=== PATIENT | female | born 1950 | race African-American/Black ===

== ENCOUNTER 2018-03-04 02:36 | Inpatient (IN) | payer OTHER ==
[2018-03-04 03:13] LABS: URINE BLOOD (Dip) POC 2+ (NEGATIVE); URINE GLUCOSE (Dip) POC Negative (NEGATIVE); URINE KETONES (Dip) POC Trace (NEGATIVE); URINE LEUKOCYTE EST (Dip) POC Trace (NEGATIVE); URINE NITRITE (Dip) POC Negative (NEGATIVE); URINE TOTAL PROTEIN POC 2+ (NEGATIVE)
[2018-03-04 03:32] LABS: ADD MAN DIFF? NO
[2018-03-04] MEDS: CEFEPIME 2GM/50 ML (PMX) 50 ML IVPB (03:40)
[2018-03-04] MEDS: SODIUM CHLORIDE 0.9% 1L BAG IV* (03:40)
[2018-03-04 03:50] LABS: ADD UMIC YES; UR ASCORBIC ACID NEGATIVE (NEGATIVE); UR BACTERIA MODERATE /HPF (NONE SEEN); UR BILIRUBIN (Dip) NEGATIVE (NEGATIVE); UR BLOOD (Dip) 2+ mg/dL (NEGATIVE); UR BUDDING YEAST MANY /HPF (NONE SEEN); UR CLARITY TURBID (CLEAR); UR COLOR YELLOW (YELLOW); UR GLUCOSE (Dip) NEGATIVE (NEGATIVE); UR KETONES (Dip) TRACE mg/dL (NEGATIVE); UR LEUKOCYTE ESTERASE (Dip) 2+ Leu/ul (NEGATIVE); UR MUCUS MANY /HPF (NONE SEEN); UR NITRITE (Dip) NEGATIVE (NEGATIVE); UR RBC > 182 /HPF (0-5); UR SPECIFIC GRAVITY (Dip) 1.017 (1.003-1.030); UR TOTAL PROTEIN (Dip) 2+ mg/dl (NEGATIVE); UR UROBILINOGEN (Dip) NEGATIVE (NEGATIVE); UR WBC > 182 /HPF (0-5)
[2018-03-04 03:57] LABS: INR 0.93; PROTIME 12.6 Sec (11.9-14.9)
[2018-03-04 03:59] LABS: ANION GAP 23 (8-16); CALCIUM 10.5 mg/dl (8.4-10.2); CARBON DIOXIDE 21 mmol/L (21-31); CHLORIDE 119 mmol/L (97-110); CREATININE 5.27 mg/dl (0.44-1.00); GLUCOSE 378 mg/dl (70-220); POTASSIUM 5.1 mmol/L (3.5-5.1); SODIUM 158 mmol/L (135-144)
[2018-03-04 04:02] LABS: LACTIC ACID 3.3 mmol/L (0.5-2.0)
[2018-03-04 04:09] LABS: BLOOD UREA NITROGEN 130 mg/dl (7-20)
[2018-03-04 04:10] LABS: WHITE BLOOD COUNT 14.6 10^3/ul (4.8-10.8)
[2018-03-04 04:10] LABS: BASOPHILS % 0.3 % (0.0-2.0); EOSINOPHILS % 0.1 % (0.0-7.0); HEMATOCRIT 53.1 % (37.0-47.0); LYMPHOCYTES # 1.6 10^3/ul (0.8-2.9); LYMPHOCYTES % 10.8 % (15.0-51.0); MEAN CORPUSCULAR HEMOGLOBIN 29.4 pg (29.0-33.0); MEAN CORPUSCULAR VOLUME 91.9 fl (82.0-101.0); MEAN PLATELET VOLUME 11.9 fl (7.4-10.4); MONOCYTE # 0.8 10^3/ul (0.3-0.9); MONOCYTES % 5.4 % (0.0-11.0); NEUTROPHIL # 12.1 10^3/ul (1.6-7.5); NEUTROPHILS % 82.8 % (39.0-77.0); NUCLEATED RED BLOOD CELLS% 0.1 /100WBC (0.0-0.0); PLATELET COUNT 255 10^3/UL (140-415); RED BLOOD COUNT 5.78 10^6/ul (4.20-5.40); RED CELL DISTRIBUTION WIDTH 15.1 % (11.5-14.5)
[2018-03-04 04:14] LABS: TROPONIN-I 0.139 ng/ml (0.000-0.120)
[2018-03-04 04:25] LABS: POSITIVE DIFF @See below
[2018-03-04] MEDS: ASPIRIN 300 MG SUPP PR (05:00)
[2018-03-04] MEDS: morphine 4 MG/ML VIAL IV (05:21)
[2018-03-04 06:19] LABS: LACTIC ACID 3.2 mmol/L (0.5-2.0)
[2018-03-04] MEDS ORDERED: ACETAMINOPHEN 325 MG TAB PO (06:30)
[2018-03-04] MEDS ORDERED: ONDANSETRON 4 MG INJ IV (06:30)
[2018-03-04 09:08] LABS: LACTIC ACID 3.1 mmol/L (0.5-2.0)
[2018-03-04] MEDS ORDERED: morphine 2 MG INJ IV (11:30)
[2018-03-04] MEDS: INSULIN GLARGINE [LANTus] (100 UNITS/ML) SYG SC (11:45)
[2018-03-04] MEDS ORDERED: GLUCOSE GEL 15 GRAM TUBE PO ×2 (12:00)
[2018-03-04] MEDS ORDERED: GLUCAGON 1 MG INJ IM (12:00)
[2018-03-04] MEDS ORDERED: GLUCOSE GEL 15 GRAM TUBE BUCCAL (12:00)
[2018-03-04] MEDS ORDERED: INSULIN ASPART [NOVOLOG] 3 ML PEN SC ×2 (12:00→13:00)
[2018-03-04] MEDS ORDERED: DEXTROSE 50% 50 ML SYRINGE IV ×5 (12:00→15:30)
[2018-03-04 12:16] LABS: CREATINE KINASE 34 IU/L (23-200)
[2018-03-04 12:18] LABS: ANION GAP 23 (8-16); CALCIUM 8.6 mg/dl (8.4-10.2); CARBON DIOXIDE 15 mmol/L (21-31); CHLORIDE 123 mmol/L (97-110); CREATININE 4.93 mg/dl (0.44-1.00); POTASSIUM 5.5 mmol/L (3.5-5.1); SODIUM 155 mmol/L (135-144)
[2018-03-04 12:25] LABS: BLOOD UREA NITROGEN 128 mg/dl (7-20); GLUCOSE 476 mg/dl (70-220)
[2018-03-04 12:27] LABS: CK INDEX 3.6; CK-MB 1.21 ng/ml (0.0-2.4)
[2018-03-04 12:31] LABS: TROPONIN-I 0.067 ng/ml (0.000-0.120)
[2018-03-04] MEDS: SOD CHLORIDE 0.45% 1,000 ML IV (13:00)
[2018-03-04] MEDS ORDERED: SODIUM CHLORIDE 23.4% 77 MEQ, POTASSIUM CHLORIDE 40 MEQ in DEXTROSE 10% 1,000 ML IV (14:04)
[2018-03-04] MEDS ORDERED: SODIUM CHLORIDE 23.4% 77 MEQ in DEXTROSE 10% 1,000 ML IV (14:04)
[2018-03-04] MEDS ORDERED: POTASSIUM CHLORIDE 30 MEQ in SOD CHLORIDE 0.9% 1,000 ML IV (14:04)
[2018-03-04] MEDS ORDERED: POTASSIUM CHLORIDE 40 MEQ in SOD CHLORIDE 0.9% 1,000 ML IV (14:04)
[2018-03-04] MEDS ORDERED: SODIUM CHLORIDE 23.4% 77 MEQ, POTASSIUM CHLORIDE 30 MEQ in DEXTROSE 10% 1,000 ML IV (14:04)
[2018-03-04] MEDS: PIPER-TAZO 2.25 GM (PMX) 50 ML IVPB ×2 (14:05→21:49)
[2018-03-04 14:06] LABS: AADO2 Arterial 9.1 mmHg (7.0-24.0); Allen Test ACCEPTAB; Arterial Base Excess -15.4 mmol/L (-3.0-3); Arterial Blood Gas Oxygen Sat 98.2 mmHG (95.0-98.0); Arterial COHb 0.3 % (0.0-3.0); Arterial Fraction of Oxyhgb 97.6 % (93.0-99.0); Arterial HCO3 12.5 mmol/L (22.0-26.0); Arterial MetHb 0.3 % (0.0-1.5); Arterial Total Hemglobin 14.3 g/dl (12.0-18.0); Arterial pCO2 36.8 mmhg (35-45); MODE NASAL CANNULA; Site Left Radial
[2018-03-04 14:34] LABS: ALANINE AMINOTRANSFERASE 29 IU/L (13-69); ALBUMIN 1.6 g/dl (3.3-4.9); ALKALINE PHOSPHATASE 38 IU/L (42-121); ASPARTATE AMINO TRANSFERASE 11 IU/L (15-46); BILIRUBIN,INDIRECT 0.2 mg/dl (0-1.1); BILIRUBIN,TOTAL 0.2 mg/dl (0.2-1.3); TOTAL PROTEIN 3.9 g/dl (6.1-8.1)
[2018-03-04] MEDS ORDERED: ACCU-CHEK XX (15:00)
[2018-03-04] MEDS: SOD CHLORIDE 0.9% 1,000 ML IV (15:01)
[2018-03-04] MEDS: INSULIN REGULAR, HUMAN 100 UNIT in SOD CHLORIDE 0.9% 100 ML IV (15:02)
[2018-03-04] MEDS: ACCU-CHEK XX ×9 (16:03→23:56)
[2018-03-04] MEDS: NA BICARBONATE 8.4% 50 ML SYG IV (16:03)
[2018-03-04] MEDS: FLUCONAZOLE 200 MG (PMX) 100 ML IVPB (16:08)
[2018-03-04] MEDS: INSULIN HUMAN REGULAR 100 UNIT in SOD CHLORIDE 0.9% 99 ML IV (16:18)
[2018-03-04] MEDS: SODIUM BICARBONATE (IV ADD) 100 MEQ in SOD CHLORIDE 0.45% 900 ML IV ×2 (16:40→21:50)
[2018-03-04 16:51] LABS: CREATININE,URINE RANDOM 119.17 mg/dl (20-320); PROTEIN/CREAT RATIO 0.36 RATIO
[2018-03-04 16:53] LABS: SODIUM,URINE RANDOM 99 mmol/L (30-90)
[2018-03-04 16:53] LABS: CREATININE,URINE RANDOM 118.57 mg/dl (20-320)
[2018-03-04 20:30] LABS: CREATINE KINASE 34 IU/L (23-200)
[2018-03-04 20:31] LABS: ANION GAP 17 (8-16); CALCIUM 7.6 mg/dl (8.4-10.2); CARBON DIOXIDE 21 mmol/L (21-31); CHLORIDE 125 mmol/L (97-110); CREATININE 3.85 mg/dl (0.44-1.00); GLUCOSE 269 mg/dl (70-220); MAGNESIUM 2.2 mg/dl (1.7-2.5); PHOSPHORUS 5.1 mg/dl (2.5-4.9); POTASSIUM 3.3 mmol/L (3.5-5.1); SODIUM 160 mmol/L (135-144)
[2018-03-04 20:42] LABS: CK INDEX 5.2; CK-MB 1.77 ng/ml (0.0-2.4); TROPONIN-I 0.048 ng/ml (0.000-0.120)
[2018-03-04 20:46] LABS: BLOOD UREA NITROGEN 129 mg/dl (7-20)
[2018-03-04] MEDS: DOCUSATE SODIUM 100 MG CAP PO (21:50)
[2018-03-04] MEDS: HEPARIN 5,000 UNIT/0.5 ML VIAL SC (21:51)
[2018-03-04 23:01] LABS: ANION GAP 16 (8-16); CALCIUM 8.4 mg/dl (8.4-10.2); CARBON DIOXIDE 24 mmol/L (21-31); CHLORIDE 125 mmol/L (97-110); CREATININE 4.08 mg/dl (0.44-1.00); GLUCOSE 130 mg/dl (70-220); MAGNESIUM 2.4 mg/dl (1.7-2.5); POTASSIUM 3.3 mmol/L (3.5-5.1)
[2018-03-04] MEDS: POTASSIUM CHLORIDE 100 ML IVPB (23:13)
[2018-03-04] MEDS: DEXTROSE 50% 50 ML SYRINGE IV (23:25)
[2018-03-04 23:29] LABS: BLOOD UREA NITROGEN 125 mg/dl (7-20); SODIUM 162 mmol/L (135-144)
[2018-03-05] MEDS ORDERED: SODIUM BICARBONATE (IV ADD) 100 MEQ in DEXTROSE 5% 1,000 ML IV
[2018-03-05] MEDS: SODIUM BICARBONATE (IV ADD) 100 MEQ in DEXTROSE 5% 1,000 ML IV (00:56)
[2018-03-05] MEDS: POTASSIUM CHLORIDE 100 ML IVPB ×2 (00:56→02:13)
[2018-03-05] MEDS: ACCU-CHEK XX ×21 (00:56→21:04)
[2018-03-05] MEDS ORDERED: ACCU-CHEK XX (02:00)
[2018-03-05] MEDS: INSULIN HUMAN REGULAR 100 UNIT in SOD CHLORIDE 0.9% 99 ML IV (03:09)
[2018-03-05] MEDS: PANTOPRAZOLE (EC) 40 MG TAB PO (05:17)
[2018-03-05] MEDS: PIPER-TAZO 2.25 GM (PMX) 50 ML IVPB ×3 (05:23→22:28)
[2018-03-05 06:56] LABS: ADD MAN DIFF? NO
[2018-03-05 07:02] LABS: BASOPHILS % 0.2 % (0.0-2.0); EOSINOPHILS # 0.3 10^3/ul (0.0-0.5); EOSINOPHILS % 2.2 % (0.0-7.0); HEMATOCRIT 41.4 % (37.0-47.0); HEMOGLOBIN 12.9 g/dl (12.0-16.0); LYMPHOCYTES # 1.8 10^3/ul (0.8-2.9); LYMPHOCYTES % 14.8 % (15.0-51.0); MEAN CORPUSCULAR HEMOGLOBIN 29.3 pg (29.0-33.0); MEAN CORPUSCULAR HGB CONC 31.2 g/dl (32.0-37.0); MEAN CORPUSCULAR VOLUME 94.1 fl (82.0-101.0); MEAN PLATELET VOLUME 11.8 fl (7.4-10.4); MONOCYTE # 0.7 10^3/ul (0.3-0.9); MONOCYTES % 5.4 % (0.0-11.0); NEUTROPHIL # 9.3 10^3/ul (1.6-7.5); NEUTROPHILS % 76.7 % (39.0-77.0); NUCLEATED RED BLOOD CELLS% 0.2 /100WBC (0.0-0.0); PLATELET COUNT 185 10^3/UL (140-415); RED CELL DISTRIBUTION WIDTH 15.3 % (11.5-14.5)
[2018-03-05 07:02] LABS: WHITE BLOOD COUNT 12.1 10^3/ul (4.8-10.8)
[2018-03-05 07:22] LABS: CREATINE KINASE 39 IU/L (23-200)
[2018-03-05 07:33] LABS: CK INDEX 6.1
[2018-03-05 07:35] LABS: TROPONIN-I 0.063 ng/ml (0.000-0.120)
[2018-03-05 07:40] LABS: FREE T4 (FREE THYROXINE) 1.46 ng/dl (0.78-2.44)
[2018-03-05 07:49] LABS: LACTIC ACID 4.9 mmol/L (0.5-2.0)
[2018-03-05] MEDS ORDERED: INSULIN GLARGINE [LANTus] (100 UNITS/ML) SYG SC (08:00)
[2018-03-05 08:18] LABS: ALANINE AMINOTRANSFERASE 26 IU/L (13-69); ALBUMIN 2.4 g/dl (3.3-4.9); ALKALINE PHOSPHATASE 57 IU/L (42-121); ANION GAP 13 (8-16); ASPARTATE AMINO TRANSFERASE 62 IU/L (15-46); BILIRUBIN,INDIRECT 0.5 mg/dl (0-1.1); BILIRUBIN,TOTAL 0.5 mg/dl (0.2-1.3); BLOOD UREA NITROGEN 119 mg/dl (7-20); CALCIUM 8.1 mg/dl (8.4-10.2); CARBON DIOXIDE 30 mmol/L (21-31); CHLORIDE 120 mmol/L (97-110); CREATININE 3.47 mg/dl (0.44-1.00); GLUCOSE 169 mg/dl (70-220); POTASSIUM 4.7 mmol/L (3.5-5.1); SODIUM 158 mmol/L (135-144); TOTAL PROTEIN 5.4 g/dl (6.1-8.1)
[2018-03-05 08:19] LABS: CHOLESTEROL 132 mg/dl (100-200); HDL CHOLESTEROL 26 mg/dl (33-92); LDL CHOLESTEROL,CALCULATED 73 mg/dl; TRIGLYCERIDES 167 mg/dl (0-149)
[2018-03-05 08:28] LABS: MAGNESIUM 2.3 mg/dl (1.7-2.5)
[2018-03-05] MEDS: DEXTROSE 5% 1,000 ML IV ×3 (09:00→22:28)
[2018-03-05] MEDS ORDERED: POTASSIUM CHLORIDE 100 ML IVPB (09:00)
[2018-03-05] MEDS: ASPIRIN (EC) 81 MG TAB PO (09:00)
[2018-03-05] MEDS: DOCUSATE SODIUM 100 MG CAP PO ×2 (09:00→20:52)
[2018-03-05 09:14] LABS: AADO2 Arterial 20.8 mmHg (7.0-24.0); Allen Test ACCEPTAB; Arterial Base Excess 6.3 mmol/L (-3.0-3); Arterial Blood Gas Oxygen Sat 98.4 mmHG (95.0-98.0); Arterial COHb 0.3 % (0.0-3.0); Arterial Fraction of Oxyhgb 97.7 % (93.0-99.0); Arterial HCO3 30.8 mmol/L (22.0-26.0); Arterial MetHb 0.4 % (0.0-1.5); Arterial Total Hemglobin 12.6 g/dl (12.0-18.0); Arterial pCO2 43.9 mmhg (35-45); MODE NASAL CANNULA; Site Left Radial
[2018-03-05] MEDS: HEPARIN 5,000 UNIT/0.5 ML VIAL SC ×2 (09:18→20:52)
[2018-03-05 09:23] LABS: CK-MB 2.35 ng/ml (0.0-2.4)
[2018-03-05 09:49] LABS: THYROID STIMULATING HORMONE 0.445 MIU/L (0.465-4.680)
[2018-03-05] MEDS ORDERED: VANCOMYCIN IV PER PHARMACY XX (10:30)
[2018-03-05] MEDS: VANCOMYCIN 1 GM 250 ML IVPB (11:48)
[2018-03-05] MEDS: FLUCONAZOLE 200 MG (PMX) 100 ML IVPB (15:36)
[2018-03-05 20:52] LABS: PTH CALCIUM 5.5 mg/dL (8.6-10.4)
[2018-03-05] MEDS ORDERED: HEPARIN 5,000 UNIT/0.5 ML VIAL SC (21:00)
[2018-03-05] MEDS ORDERED: DEXTROSE 50% 50 ML SYRINGE IV (22:00)
[2018-03-05] MEDS ORDERED: GLUCAGON 1 MG INJ IM (22:00)
[2018-03-05] MEDS ORDERED: GLUCOSE GEL 15 GRAM TUBE BUCCAL (22:00)
[2018-03-05] MEDS ORDERED: GLUCOSE GEL 15 GRAM TUBE PO ×2 (22:00)
[2018-03-05] MEDS: INSULIN GLARGINE [LANTus] (100 UNITS/ML) SYG SC (22:41)
[2018-03-06] MEDS: INSULIN ASPART [NOVOLOG] 3 ML PEN SC ×6 (01:16→21:00)
[2018-03-06] MEDS ORDERED: ACCU-CHEK XX (02:00)
[2018-03-06] MEDS: DEXTROSE 5% 1,000 ML IV ×2 (05:00→06:19)
[2018-03-06] MEDS: PANTOPRAZOLE (EC) 40 MG TAB PO (05:16)
[2018-03-06] MEDS: PIPER-TAZO 2.25 GM (PMX) 50 ML IVPB (05:17)
[2018-03-06 05:37] LABS: ADD MAN DIFF? NO
[2018-03-06 05:47] LABS: WHITE BLOOD COUNT 11.3 10^3/ul (4.8-10.8)
[2018-03-06 05:47] LABS: BASOPHILS % 0.3 % (0.0-2.0); EOSINOPHILS # 0.3 10^3/ul (0.0-0.5); EOSINOPHILS % 2.5 % (0.0-7.0); LYMPHOCYTES # 1.1 10^3/ul (0.8-2.9); LYMPHOCYTES % 10.1 % (15.0-51.0); MEAN CORPUSCULAR HEMOGLOBIN 29.3 pg (29.0-33.0); MEAN CORPUSCULAR HGB CONC 32.4 g/dl (32.0-37.0); MEAN CORPUSCULAR VOLUME 90.7 fl (82.0-101.0); MONOCYTE # 0.8 10^3/ul (0.3-0.9); MONOCYTES % 6.9 % (0.0-11.0); NEUTROPHILS % 79.3 % (39.0-77.0); NUCLEATED RED BLOOD CELLS% 0.4 /100WBC (0.0-0.0); PLATELET COUNT 165 10^3/UL (140-415); RED BLOOD COUNT 3.75 10^6/ul (4.20-5.40); RED CELL DISTRIBUTION WIDTH 15.2 % (11.5-14.5)
[2018-03-06 06:14] LABS: ANION GAP 11 (8-16); BLOOD UREA NITROGEN 76 mg/dl (7-20); CALCIUM 7.4 mg/dl (8.4-10.2); CARBON DIOXIDE 29 mmol/L (21-31); CHLORIDE 108 mmol/L (97-110); CREATININE 2.32 mg/dl (0.44-1.00); GLUCOSE 201 mg/dl (70-220); POTASSIUM 3.5 mmol/L (3.5-5.1); SODIUM 144 mmol/L (135-144)
[2018-03-06 06:17] LABS: ALANINE AMINOTRANSFERASE 34 IU/L (13-69); ALBUMIN 2.1 g/dl (3.3-4.9); ALKALINE PHOSPHATASE 60 IU/L (42-121); ANION GAP 10 (8-16); ASPARTATE AMINO TRANSFERASE 58 IU/L (15-46); BILIRUBIN,INDIRECT 0.7 mg/dl (0-1.1); BILIRUBIN,TOTAL 0.7 mg/dl (0.2-1.3); BLOOD UREA NITROGEN 80 mg/dl (7-20); CALCIUM 7.4 mg/dl (8.4-10.2); CARBON DIOXIDE 30 mmol/L (21-31); CHLORIDE 107 mmol/L (97-110); CREATININE 2.41 mg/dl (0.44-1.00); GLUCOSE 200 mg/dl (70-220); MAGNESIUM 1.6 mg/dl (1.7-2.5); PHOSPHORUS 2.3 mg/dl (2.5-4.9); POTASSIUM 3.2 mmol/L (3.5-5.1); SODIUM 144 mmol/L (135-144); TOTAL PROTEIN 4.7 g/dl (6.1-8.1)
[2018-03-06] MEDS ORDERED: INSULIN ASPART [NOVOLOG] 3 ML PEN SC (07:35)
[2018-03-06] MEDS: MAGNESIUM SULFATE 2 GM/50 ML 50 ML IVPB (08:33)
[2018-03-06] MEDS: D5W-0.45 NACL + KCL 20 MEQ 1,000 ML IV ×2 (08:34→21:00)
[2018-03-06] MEDS: HEPARIN 5,000 UNIT/0.5 ML VIAL SC ×2 (08:37→21:20)
[2018-03-06] MEDS: ASPIRIN (EC) 81 MG TAB PO (08:38)
[2018-03-06] MEDS: DOCUSATE SODIUM 100 MG CAP PO ×2 (08:38→20:11)
[2018-03-06] MEDS: METOPROLOL 25 MG TAB PO ×2 (09:00→21:00)
[2018-03-06] MEDS: POTASSIUM CHLORIDE 50 ML IVPB ×3 (10:58→17:09)
[2018-03-06] MEDS: FLUCONAZOLE 200 MG (PMX) 100 ML IVPB (11:14)
[2018-03-06 11:46] LABS: PTH INTACT 107 pg/mL (14-64)
[2018-03-06] MEDS: MUPIROCIN 2% 22 GM OINT TOP ×2 (12:55→23:41)
[2018-03-06] MEDS: ERTAPENEM SODIUM 0.5 GM in SOD CHLORIDE 0.9% 100 ML IVPB (16:37)
[2018-03-06] MEDS: INSULIN GLARGINE [LANTus] (100 UNITS/ML) SYG SC (21:19)
[2018-03-07] MEDS: INSULIN ASPART [NOVOLOG] 3 ML PEN SC ×7 (01:18→20:39)
[2018-03-07] MEDS: PANTOPRAZOLE 40 MG INJ IV (05:47)
[2018-03-07] MEDS: D5W-0.45 NACL + KCL 20 MEQ 1,000 ML IV ×2 (06:34→09:07)
[2018-03-07 07:42] LABS: ADD MAN DIFF? NO
[2018-03-07 07:49] LABS: WHITE BLOOD COUNT 10.3 10^3/ul (4.8-10.8)
[2018-03-07 07:49] LABS: BASOPHILS % 0.3 % (0.0-2.0); EOSINOPHILS # 0.2 10^3/ul (0.0-0.5); EOSINOPHILS % 1.6 % (0.0-7.0); HEMATOCRIT 41.3 % (37.0-47.0); HEMOGLOBIN 12.7 g/dl (12.0-16.0); LYMPHOCYTES # 1.6 10^3/ul (0.8-2.9); LYMPHOCYTES % 15.1 % (15.0-51.0); MEAN CORPUSCULAR HEMOGLOBIN 28.8 pg (29.0-33.0); MEAN CORPUSCULAR HGB CONC 30.8 g/dl (32.0-37.0); MEAN CORPUSCULAR VOLUME 93.7 fl (82.0-101.0); MEAN PLATELET VOLUME 12.7 fl (7.4-10.4); MONOCYTE # 0.6 10^3/ul (0.3-0.9); MONOCYTES % 6.1 % (0.0-11.0); NEUTROPHIL # 7.8 10^3/ul (1.6-7.5); NEUTROPHILS % 75.6 % (39.0-77.0); NUCLEATED RED BLOOD CELLS # 0.1 10^3/ul (0.0-0.0); NUCLEATED RED BLOOD CELLS% 0.7 /100WBC (0.0-0.0); PLATELET COUNT 146 10^3/UL (140-415); RED BLOOD COUNT 4.41 10^6/ul (4.20-5.40); RED CELL DISTRIBUTION WIDTH 15.2 % (11.5-14.5)
[2018-03-07 08:07] LABS: ALANINE AMINOTRANSFERASE 30 IU/L (13-69); ALBUMIN 2.5 g/dl (3.3-4.9); ALKALINE PHOSPHATASE 91 IU/L (42-121); ANION GAP 11 (8-16); ASPARTATE AMINO TRANSFERASE 37 IU/L (15-46); BILIRUBIN,INDIRECT 0.6 mg/dl (0-1.1); BILIRUBIN,TOTAL 0.6 mg/dl (0.2-1.3); BLOOD UREA NITROGEN 56 mg/dl (7-20); CALCIUM 8.3 mg/dl (8.4-10.2); CARBON DIOXIDE 29 mmol/L (21-31); CHLORIDE 114 mmol/L (97-110); CREATININE 2.12 mg/dl (0.44-1.00); GLUCOSE 160 mg/dl (70-220); MAGNESIUM 2.3 mg/dl (1.7-2.5); POTASSIUM 4.7 mmol/L (3.5-5.1); SODIUM 149 mmol/L (135-144); TOTAL PROTEIN 5.6 g/dl (6.1-8.1)
[2018-03-07] MEDS: METOPROLOL 25 MG TAB PO ×2 (09:00→19:43)
[2018-03-07] MEDS: ASPIRIN (EC) 81 MG TAB PO (09:00)
[2018-03-07] MEDS: DOCUSATE SODIUM 100 MG CAP PO ×2 (09:00→19:43)
[2018-03-07] MEDS: MUPIROCIN 2% 22 GM OINT TOP ×2 (09:06→20:36)
[2018-03-07] MEDS: HEPARIN 5,000 UNIT/0.5 ML VIAL SC ×2 (09:06→20:34)
[2018-03-07] MEDS: DEXTROSE IV (10:44)
[2018-03-07] MEDS: MULTIVITAMINS IV (10:44)
[2018-03-07] MEDS: FLUCONAZOLE 200 MG (PMX) 100 ML IVPB (12:41)
[2018-03-07] MEDS: ERTAPENEM SODIUM 0.5 GM in SOD CHLORIDE 0.9% 100 ML IVPB (15:19)
[2018-03-07] MEDS: DEXTROSE 5% 1,000 ML IV ×2 (18:00→22:24)
[2018-03-07] MEDS: BALSAM PERU/CASTOR OIL 60 GM TUBE TOP (20:36)
[2018-03-07] MEDS: INSULIN GLARGINE [LANTus] (100 UNITS/ML) SYG SC (20:36)
[2018-03-08] MEDS: INSULIN ASPART [NOVOLOG] 3 ML PEN SC ×7 (01:00→21:00)
[2018-03-08] MEDS: DEXTROSE 5% 1,000 ML IV ×4 (01:01→23:51)
[2018-03-08] MEDS: PANTOPRAZOLE 40 MG INJ IV (05:14)
[2018-03-08 06:42] LABS: ADD MAN DIFF? NO
[2018-03-08 06:46] LABS: BASOPHILS % 0.3 % (0.0-2.0); EOSINOPHILS # 0.2 10^3/ul (0.0-0.5); EOSINOPHILS % 2.8 % (0.0-7.0); HEMATOCRIT 36.6 % (37.0-47.0); HEMOGLOBIN 11.4 g/dl (12.0-16.0); LYMPHOCYTES # 1.7 10^3/ul (0.8-2.9); LYMPHOCYTES % 19.3 % (15.0-51.0); MEAN CORPUSCULAR HEMOGLOBIN 29.2 pg (29.0-33.0); MEAN CORPUSCULAR HGB CONC 31.1 g/dl (32.0-37.0); MEAN CORPUSCULAR VOLUME 93.6 fl (82.0-101.0); MONOCYTE # 0.6 10^3/ul (0.3-0.9); MONOCYTES % 6.4 % (0.0-11.0); NEUTROPHILS % 68.9 % (39.0-77.0); NUCLEATED RED BLOOD CELLS% 0.3 /100WBC (0.0-0.0); PLATELET COUNT 108 10^3/UL (140-415); RED BLOOD COUNT 3.91 10^6/ul (4.20-5.40); RED CELL DISTRIBUTION WIDTH 15.2 % (11.5-14.5)
[2018-03-08 06:46] LABS: WHITE BLOOD COUNT 8.6 10^3/ul (4.8-10.8)
[2018-03-08 07:39] LABS: ALANINE AMINOTRANSFERASE 28 IU/L (13-69); ALBUMIN/GLOBULIN RATIO 0.76; ALKALINE PHOSPHATASE 70 IU/L (42-121); ANION GAP 10 (8-16); ASPARTATE AMINO TRANSFERASE 27 IU/L (15-46); BILIRUBIN,INDIRECT 0.4 mg/dl (0-1.1); BILIRUBIN,TOTAL 0.4 mg/dl (0.2-1.3); BLOOD UREA NITROGEN 36 mg/dl (7-20); CALCIUM 8.2 mg/dl (8.4-10.2); CARBON DIOXIDE 28 mmol/L (21-31); CHLORIDE 107 mmol/L (97-110); GLUCOSE 193 mg/dl (70-220); MAGNESIUM 1.7 mg/dl (1.7-2.5); PHOSPHORUS 2.7 mg/dl (2.5-4.9); SODIUM 141 mmol/L (135-144); TOTAL PROTEIN 4.6 g/dl (6.1-8.1)
[2018-03-08] MEDS: BALSAM PERU/CASTOR OIL 60 GM TUBE TOP ×2 (08:34→21:02)
[2018-03-08] MEDS: MUPIROCIN 2% 22 GM OINT TOP ×2 (08:35→21:02)
[2018-03-08] MEDS: HEPARIN 5,000 UNIT/0.5 ML VIAL SC ×2 (08:37→21:02)
[2018-03-08] MEDS: DOCUSATE SODIUM 100 MG CAP PO ×2 (08:38→20:48)
[2018-03-08] MEDS: METOPROLOL 25 MG TAB PO ×2 (08:38→20:48)
[2018-03-08] MEDS: ASPIRIN (EC) 81 MG TAB PO (08:38)
[2018-03-08] MEDS: DEXTROSE IV (08:55)
[2018-03-08] MEDS: MULTIVITAMINS IV (08:55)
[2018-03-08] MEDS: MAGNESIUM SULFATE 2 GM/50 ML 50 ML IVPB (10:37)
[2018-03-08 10:46] LABS: PROCALCITONIN 0.43 ng/mL (<0.10)
[2018-03-08] MEDS: FLUCONAZOLE 200 MG (PMX) 100 ML IVPB (12:56)
[2018-03-08] MEDS: ERTAPENEM SODIUM 0.5 GM in SOD CHLORIDE 0.9% 100 ML IVPB (16:29)
[2018-03-08] MEDS: INSULIN GLARGINE [LANTus] (100 UNITS/ML) SYG SC (21:01)
[2018-03-09] MEDS: INSULIN ASPART [NOVOLOG] 3 ML PEN SC ×7 (00:39→21:00)
[2018-03-09] MEDS: PANTOPRAZOLE 40 MG INJ IV (05:40)
[2018-03-09] MEDS: DEXTROSE 5% 1,000 ML IV ×2 (05:41→13:11)
[2018-03-09] MEDS: ASPIRIN (EC) 81 MG TAB PO (09:00)
[2018-03-09] MEDS: DOCUSATE SODIUM 100 MG CAP PO (09:00)
[2018-03-09] MEDS: METOPROLOL 25 MG TAB PO ×2 (09:00→21:00)
[2018-03-09] MEDS: MULTIVITAMINS IV (09:18)
[2018-03-09] MEDS: DEXTROSE IV (09:18)
[2018-03-09] MEDS: BALSAM PERU/CASTOR OIL 60 GM TUBE TOP ×2 (09:18→21:00)
[2018-03-09] MEDS: MUPIROCIN 2% 22 GM OINT TOP ×2 (09:18→21:00)
[2018-03-09] MEDS: HEPARIN 5,000 UNIT/0.5 ML VIAL SC ×2 (09:49→21:07)
[2018-03-09 12:20] LABS: ADD MAN DIFF? NO
[2018-03-09 12:28] LABS: WHITE BLOOD COUNT 8.3 10^3/ul (4.8-10.8)
[2018-03-09 12:28] LABS: ABNORMAL IP MESSAGE 1; BASOPHILS % 0.5 % (0.0-2.0); EOSINOPHILS # 0.3 10^3/ul (0.0-0.5); LYMPHOCYTES # 1.9 10^3/ul (0.8-2.9); LYMPHOCYTES % 22.4 % (15.0-51.0); MEAN CORPUSCULAR HGB CONC 31.8 g/dl (32.0-37.0); MEAN CORPUSCULAR VOLUME 91.1 fl (82.0-101.0); MEAN PLATELET VOLUME 13.1 fl (7.4-10.4); MONOCYTE # 0.7 10^3/ul (0.3-0.9); MONOCYTES % 8.8 % (0.0-11.0); NEUTROPHIL # 5.2 10^3/ul (1.6-7.5); NEUTROPHILS % 62.9 % (39.0-77.0); PLATELET COUNT 126 10^3/UL (140-415); RED BLOOD COUNT 4.83 10^6/ul (4.20-5.40); RED CELL DISTRIBUTION WIDTH 14.9 % (11.5-14.5)
[2018-03-09 12:29] LABS: POSITIVE DIFF @See below
[2018-03-09 13:09] LABS: ALBUMIN 3.2 g/dl (3.3-4.9); ALBUMIN/GLOBULIN RATIO 0.86; ALKALINE PHOSPHATASE 128 IU/L (42-121); ANION GAP 13 (8-16); ASPARTATE AMINO TRANSFERASE 38 IU/L (15-46); BILIRUBIN,INDIRECT 0.3 mg/dl (0-1.1); BILIRUBIN,TOTAL 0.3 mg/dl (0.2-1.3); BLOOD UREA NITROGEN 19 mg/dl (7-20); CARBON DIOXIDE 27 mmol/L (21-31); CHLORIDE 107 mmol/L (97-110); CREATININE 1.62 mg/dl (0.44-1.00); GLUCOSE 130 mg/dl (70-220); MAGNESIUM 2.2 mg/dl (1.7-2.5); PHOSPHORUS 3.3 mg/dl (2.5-4.9); POTASSIUM 3.9 mmol/L (3.5-5.1); SODIUM 143 mmol/L (135-144); TOTAL PROTEIN 6.9 g/dl (6.1-8.1)
[2018-03-09 13:10] LABS: ALANINE AMINOTRANSFERASE < 6 IU/L (13-69)
[2018-03-09] MEDS: ERTAPENEM SODIUM 0.5 GM in SOD CHLORIDE 0.9% 100 ML IVPB (16:06)
[2018-03-09] MEDS: INSULIN GLARGINE [LANTus] (100 UNITS/ML) SYG SC (21:05)
[2018-03-10] MEDS: INSULIN ASPART [NOVOLOG] 3 ML PEN SC ×6 (01:00→20:41)
[2018-03-10] MEDS: DEXTROSE 5% 1,000 ML IV (05:10)
[2018-03-10] MEDS: METOPROLOL 25 MG TAB PO ×2 (09:00→20:41)
[2018-03-10] MEDS: ASPIRIN (EC) 81 MG TAB PO (09:00)
[2018-03-10] MEDS: MUPIROCIN 2% 22 GM OINT TOP ×2 (09:12→20:51)
[2018-03-10] MEDS: FAMOTIDINE 20 MG INJ IV (09:12)
[2018-03-10] MEDS: MULTIVITAMINS IV (09:12)
[2018-03-10] MEDS: DEXTROSE IV (09:12)
[2018-03-10] MEDS: BALSAM PERU/CASTOR OIL 60 GM TUBE TOP ×2 (09:13→20:51)
[2018-03-10] MEDS: DEXTROSE 50% 50 ML SYRINGE IV (09:23)
[2018-03-10] MEDS: HEPARIN 5,000 UNIT/0.5 ML VIAL SC ×2 (09:23→20:40)
[2018-03-10] MEDS: ERTAPENEM SODIUM 0.5 GM in SOD CHLORIDE 0.9% 100 ML IVPB (15:48)
[2018-03-10] MEDS ORDERED: INSULIN GLARGINE [LANTus] (100 UNITS/ML) SYG SC (20:00)
[2018-03-10] MEDS: INSULIN GLARGINE [LANTus] (100 UNITS/ML) SYG SC (20:50)
[2018-03-11] MEDS: INSULIN ASPART [NOVOLOG] 3 ML PEN SC ×6 (01:00→21:01)
[2018-03-11] MEDS: DEXTROSE 5% 1,000 ML IV ×2 (02:43→22:29)
[2018-03-11 06:30] LABS: ADD MAN DIFF? NO
[2018-03-11 06:35] LABS: BASOPHILS % 0.4 % (0.0-2.0); EOSINOPHILS # 0.2 10^3/ul (0.0-0.5); EOSINOPHILS % 2.8 % (0.0-7.0); HEMATOCRIT 40.2 % (37.0-47.0); HEMOGLOBIN 12.9 g/dl (12.0-16.0); LYMPHOCYTES # 2.5 10^3/ul (0.8-2.9); LYMPHOCYTES % 31.5 % (15.0-51.0); MEAN CORPUSCULAR HEMOGLOBIN 29.1 pg (29.0-33.0); MEAN CORPUSCULAR HGB CONC 32.1 g/dl (32.0-37.0); MEAN CORPUSCULAR VOLUME 90.5 fl (82.0-101.0); MEAN PLATELET VOLUME 11.8 fl (7.4-10.4); MONOCYTE # 0.9 10^3/ul (0.3-0.9); NEUTROPHIL # 4.1 10^3/ul (1.6-7.5); NEUTROPHILS % 52.5 % (39.0-77.0); PLATELET COUNT 207 10^3/UL (140-415); RED BLOOD COUNT 4.44 10^6/ul (4.20-5.40); RED CELL DISTRIBUTION WIDTH 14.8 % (11.5-14.5)
[2018-03-11 06:35] LABS: WHITE BLOOD COUNT 7.8 10^3/ul (4.8-10.8)
[2018-03-11 06:53] LABS: INR 0.94; PROTIME 12.7 Sec (11.9-14.9)
[2018-03-11 06:56] LABS: ALANINE AMINOTRANSFERASE 24 IU/L (13-69); ALBUMIN 2.4 g/dl (3.3-4.9); ALKALINE PHOSPHATASE 97 IU/L (42-121); ANION GAP 12 (8-16); ASPARTATE AMINO TRANSFERASE 32 IU/L (15-46); BILIRUBIN,INDIRECT 0.3 mg/dl (0-1.1); BILIRUBIN,TOTAL 0.3 mg/dl (0.2-1.3); BLOOD UREA NITROGEN 8 mg/dl (7-20); CALCIUM 8.6 mg/dl (8.4-10.2); CARBON DIOXIDE 25 mmol/L (21-31); CHLORIDE 108 mmol/L (97-110); CREATININE 1.46 mg/dl (0.44-1.00); GLUCOSE 110 mg/dl (70-220); MAGNESIUM 1.5 mg/dl (1.7-2.5); PHOSPHORUS 3.9 mg/dl (2.5-4.9); POTASSIUM 4.1 mmol/L (3.5-5.1); SODIUM 141 mmol/L (135-144); TOTAL PROTEIN 5.8 g/dl (6.1-8.1)
[2018-03-11] MEDS: METOPROLOL 25 MG TAB PO ×2 (09:00→21:00)
[2018-03-11] MEDS: ASPIRIN (EC) 81 MG TAB PO (09:00)
[2018-03-11] MEDS: BALSAM PERU/CASTOR OIL 60 GM TUBE TOP ×2 (09:36→21:02)
[2018-03-11] MEDS: HEPARIN 5,000 UNIT/0.5 ML VIAL SC ×2 (09:36→21:02)
[2018-03-11] MEDS: FAMOTIDINE 20 MG INJ IV (09:36)
[2018-03-11] MEDS: MUPIROCIN 2% 22 GM OINT TOP ×2 (09:36→21:02)
[2018-03-11] MEDS: MULTIVITAMINS IV (09:40)
[2018-03-11] MEDS: DEXTROSE IV (09:40)
[2018-03-11] MEDS: MAGNESIUM SULFATE 2 GM/50 ML 50 ML IVPB (13:07)
[2018-03-11] MEDS: LIDOCAINE 1% (MPF) 5 ML VIAL SC (14:00)
[2018-03-11] MEDS: ACCU-CHEK XX ×2 (17:00→21:00)
[2018-03-11] MEDS: ERTAPENEM SODIUM 0.5 GM in SOD CHLORIDE 0.9% 100 ML IVPB (17:05)
[2018-03-11] MEDS: INSULIN GLARGINE [LANTus] (100 UNITS/ML) SYG SC (21:01)
[2018-03-12] MEDS: INSULIN ASPART [NOVOLOG] 3 ML PEN SC ×6 (00:56→20:35)
[2018-03-12] MEDS: ACCU-CHEK XX ×4 (01:00→12:37)
[2018-03-12] MEDS: ASPIRIN (EC) 81 MG TAB PO (09:00)
[2018-03-12] MEDS: METOPROLOL 25 MG TAB PO ×2 (09:00→20:30)
[2018-03-12] MEDS: DEXTROSE IV (09:19)
[2018-03-12] MEDS: MULTIVITAMINS IV (09:19)
[2018-03-12 09:20] LABS: ADD MAN DIFF? NO
[2018-03-12] MEDS: BALSAM PERU/CASTOR OIL 60 GM TUBE TOP ×2 (09:21→20:35)
[2018-03-12] MEDS: MUPIROCIN 2% 22 GM OINT TOP ×2 (09:21→20:35)
[2018-03-12] MEDS: HEPARIN 5,000 UNIT/0.5 ML VIAL SC ×2 (09:27→20:35)
[2018-03-12 09:31] LABS: BASOPHILS % 0.3 % (0.0-2.0); EOSINOPHILS # 0.1 10^3/ul (0.0-0.5); EOSINOPHILS % 1.8 % (0.0-7.0); HEMATOCRIT 37.5 % (37.0-47.0); HEMOGLOBIN 12.1 g/dl (12.0-16.0); LYMPHOCYTES # 2.1 10^3/ul (0.8-2.9); LYMPHOCYTES % 27.5 % (15.0-51.0); MEAN CORPUSCULAR HEMOGLOBIN 28.9 pg (29.0-33.0); MEAN CORPUSCULAR HGB CONC 32.3 g/dl (32.0-37.0); MEAN CORPUSCULAR VOLUME 89.7 fl (82.0-101.0); MEAN PLATELET VOLUME 11.6 fl (7.4-10.4); MONOCYTE # 0.8 10^3/ul (0.3-0.9); MONOCYTES % 10.5 % (0.0-11.0); NEUTROPHIL # 4.5 10^3/ul (1.6-7.5); NEUTROPHILS % 58.2 % (39.0-77.0); PLATELET COUNT 234 10^3/UL (140-415); RED BLOOD COUNT 4.18 10^6/ul (4.20-5.40); RED CELL DISTRIBUTION WIDTH 14.6 % (11.5-14.5)
[2018-03-12 09:31] LABS: WHITE BLOOD COUNT 7.7 10^3/ul (4.8-10.8)
[2018-03-12] MEDS: FAMOTIDINE 20 MG INJ IV ×2 (09:33→09:40)
[2018-03-12 10:10] LABS: ALANINE AMINOTRANSFERASE 17 IU/L (13-69); ALBUMIN 2.2 g/dl (3.3-4.9); ALKALINE PHOSPHATASE 92 IU/L (42-121); ASPARTATE AMINO TRANSFERASE 27 IU/L (15-46); BILIRUBIN,INDIRECT 0.2 mg/dl (0-1.1); BILIRUBIN,TOTAL 0.2 mg/dl (0.2-1.3); BLOOD UREA NITROGEN 6 mg/dl (7-20); CALCIUM 8.5 mg/dl (8.4-10.2); CARBON DIOXIDE 24 mmol/L (21-31); CHLORIDE 109 mmol/L (97-110); CREATININE 1.33 mg/dl (0.44-1.00); GLUCOSE 111 mg/dl (70-220); MAGNESIUM 2.1 mg/dl (1.7-2.5); PHOSPHORUS 3.8 mg/dl (2.5-4.9); SODIUM 140 mmol/L (135-144); TOTAL PROTEIN 5.3 g/dl (6.1-8.1); TRIGLYCERIDES 162 mg/dl (0-149)
[2018-03-12] MEDS: PANTOPRAZOLE 40 MG INJ IV (12:35)
[2018-03-12] MEDS: ASPIRIN 300 MG SUPP PR (12:43)
[2018-03-12 12:53] LABS: ANION GAP 11 (8-16); POTASSIUM 3.6 mmol/L (3.5-5.1)
[2018-03-12 13:03] LABS: PREALBUMIN 10.7 mg/dl (17.6-36.0)
[2018-03-12 14:09] LABS: ADD MAN DIFF? NO
[2018-03-12 14:30] LABS: INR 0.89; PARTIAL THROMBOPLASTIN TIME 22.1 Sec (23.0-35.0); PROTIME 12.1 Sec (11.9-14.9); PT RATIO 0.9
[2018-03-12] MEDS: PROPOFOL 20 ML (15:05)
[2018-03-12] MEDS ORDERED: LIDOCAINE 2% (SDV) 5 ML INJ (15:05)
[2018-03-12] MEDS: CEFAZOLIN 1 GM/50 ML (PMX) 50 ML IVPB (15:05)
[2018-03-12 15:13] LABS: BASOPHILS % 0.1 % (0.0-2.0); EOSINOPHILS # 0.2 10^3/ul (0.0-0.5); EOSINOPHILS % 2.1 % (0.0-7.0); HEMATOCRIT 31.7 % (37.0-47.0); HEMOGLOBIN 10.3 g/dl (12.0-16.0); LYMPHOCYTES # 1.6 10^3/ul (0.8-2.9); LYMPHOCYTES % 22.3 % (15.0-51.0); MEAN CORPUSCULAR HEMOGLOBIN 29.6 pg (29.0-33.0); MEAN CORPUSCULAR HGB CONC 32.5 g/dl (32.0-37.0); MEAN CORPUSCULAR VOLUME 91.1 fl (82.0-101.0); MEAN PLATELET VOLUME 10.7 fl (7.4-10.4); MONOCYTE # 0.7 10^3/ul (0.3-0.9); MONOCYTES % 9.8 % (0.0-11.0); NEUTROPHIL # 4.5 10^3/ul (1.6-7.5); NEUTROPHILS % 64.7 % (39.0-77.0); PLATELET COUNT 291 10^3/UL (140-415); RED BLOOD COUNT 3.48 10^6/ul (4.20-5.40)
[2018-03-12 15:20] LABS: ALANINE AMINOTRANSFERASE 24 IU/L (13-69); ALBUMIN 2.1 g/dl (3.3-4.9); ALKALINE PHOSPHATASE 84 IU/L (42-121); ANION GAP 9 (8-16); ASPARTATE AMINO TRANSFERASE 24 IU/L (15-46); BILIRUBIN,INDIRECT 0.3 mg/dl (0-1.1); BILIRUBIN,TOTAL 0.3 mg/dl (0.2-1.3); BLOOD UREA NITROGEN 5 mg/dl (7-20); CALCIUM 8.2 mg/dl (8.4-10.2); CARBON DIOXIDE 28 mmol/L (21-31); CHLORIDE 105 mmol/L (97-110); CREATININE 1.42 mg/dl (0.44-1.00); GLUCOSE 157 mg/dl (70-220); POTASSIUM 3.4 mmol/L (3.5-5.1); SODIUM 139 mmol/L (135-144); TOTAL PROTEIN 5.1 g/dl (6.1-8.1)
[2018-03-12] MEDS ORDERED: TPN 1,000 ML IV (16:00)
[2018-03-12] MEDS ORDERED: FAT EMULSION 20% 250 ML IV (16:00)
[2018-03-12] MEDS: DEXTROSE 5%-0.45% NACL 1,000 ML IV (17:22)
[2018-03-12] MEDS: ERTAPENEM SODIUM 0.5 GM in SOD CHLORIDE 0.9% 100 ML IVPB (17:22)
[2018-03-12] MEDS: POTASSIUM CHLORIDE 100 ML IVPB ×2 (17:23→20:29)
[2018-03-12] MEDS: INSULIN GLARGINE [LANTus] (100 UNITS/ML) SYG SC (20:34)
[2018-03-13] MEDS: INSULIN ASPART [NOVOLOG] 3 ML PEN SC ×6 (01:42→21:37)
[2018-03-13] MEDS: DEXTROSE 5%-0.45% NACL 1,000 ML IV ×5 (02:30→22:30)
[2018-03-13 05:12] LABS: ADD MAN DIFF? NO
[2018-03-13 05:18] LABS: WHITE BLOOD COUNT 6.8 10^3/ul (4.8-10.8)
[2018-03-13 05:18] LABS: BASOPHILS % 0.1 % (0.0-2.0); EOSINOPHILS # 0.1 10^3/ul (0.0-0.5); EOSINOPHILS % 2.1 % (0.0-7.0); HEMATOCRIT 31.5 % (37.0-47.0); HEMOGLOBIN 10.1 g/dl (12.0-16.0); LYMPHOCYTES # 1.9 10^3/ul (0.8-2.9); LYMPHOCYTES % 27.3 % (15.0-51.0); MEAN CORPUSCULAR HEMOGLOBIN 29.3 pg (29.0-33.0); MEAN CORPUSCULAR HGB CONC 32.1 g/dl (32.0-37.0); MEAN CORPUSCULAR VOLUME 91.3 fl (82.0-101.0); MEAN PLATELET VOLUME 10.5 fl (7.4-10.4); MONOCYTE # 0.7 10^3/ul (0.3-0.9); MONOCYTES % 10.1 % (0.0-11.0); NEUTROPHILS % 59.4 % (39.0-77.0); PLATELET COUNT 325 10^3/UL (140-415); RED BLOOD COUNT 3.45 10^6/ul (4.20-5.40); RED CELL DISTRIBUTION WIDTH 14.9 % (11.5-14.5)
[2018-03-13 05:50] LABS: PHOSPHORUS 3.1 mg/dl (2.5-4.9)
[2018-03-13 05:53] LABS: ANION GAP 5 (8-16); BLOOD UREA NITROGEN 4 mg/dl (7-20); CALCIUM 7.9 mg/dl (8.4-10.2); CARBON DIOXIDE 27 mmol/L (21-31); CHLORIDE 114 mmol/L (97-110); CREATININE 1.28 mg/dl (0.44-1.00); GLUCOSE 87 mg/dl (70-220); MAGNESIUM 1.7 mg/dl (1.7-2.5); POTASSIUM 4.1 mmol/L (3.5-5.1); SODIUM 142 mmol/L (135-144)
[2018-03-13] MEDS: PANTOPRAZOLE 40 MG INJ IV (06:14)
[2018-03-13] MEDS: METOPROLOL 25 MG TAB PO ×2 (09:23→21:42)
[2018-03-13] MEDS: BALSAM PERU/CASTOR OIL 60 GM TUBE TOP ×2 (09:24→21:42)
[2018-03-13] MEDS: MUPIROCIN 2% 22 GM OINT TOP ×2 (09:24→21:42)
[2018-03-13] MEDS: MAGNESIUM SULFATE 2 GM/50 ML 50 ML IVPB (09:34)
[2018-03-13] MEDS: HEPARIN 5,000 UNIT/0.5 ML VIAL SC ×2 (09:34→21:00)
[2018-03-13] MEDS: ASPIRIN 300 MG SUPP PR (10:58)
[2018-03-13] MEDS: INSULIN GLARGINE [LANTus] (100 UNITS/ML) SYG SC (21:47)
[2018-03-14] MEDS: INSULIN ASPART [NOVOLOG] 3 ML PEN SC ×6 (01:00→21:59)
[2018-03-14] MEDS: DEXTROSE 5%-0.45% NACL 1,000 ML IV ×3 (04:44→16:06)
[2018-03-14] MEDS: PANTOPRAZOLE 40 MG INJ IV (05:48)
[2018-03-14 05:50] LABS: ADD MAN DIFF? NO
[2018-03-14 05:56] LABS: WHITE BLOOD COUNT 6.6 10^3/ul (4.8-10.8)
[2018-03-14 05:57] LABS: BASOPHILS % 0.5 % (0.0-2.0); EOSINOPHILS # 0.1 10^3/ul (0.0-0.5); EOSINOPHILS % 1.8 % (0.0-7.0); HEMATOCRIT 29.6 % (37.0-47.0); HEMOGLOBIN 9.6 g/dl (12.0-16.0); LYMPHOCYTES # 1.7 10^3/ul (0.8-2.9); LYMPHOCYTES % 24.8 % (15.0-51.0); MEAN CORPUSCULAR HEMOGLOBIN 29.7 pg (29.0-33.0); MEAN CORPUSCULAR HGB CONC 32.4 g/dl (32.0-37.0); MEAN CORPUSCULAR VOLUME 91.6 fl (82.0-101.0); MEAN PLATELET VOLUME 10.4 fl (7.4-10.4); MONOCYTE # 0.7 10^3/ul (0.3-0.9); MONOCYTES % 10.7 % (0.0-11.0); NEUTROPHIL # 4.1 10^3/ul (1.6-7.5); NEUTROPHILS % 61.3 % (39.0-77.0); PLATELET COUNT 333 10^3/UL (140-415); RED BLOOD COUNT 3.23 10^6/ul (4.20-5.40); RED CELL DISTRIBUTION WIDTH 14.9 % (11.5-14.5)
[2018-03-14 06:36] LABS: ANION GAP 7 (8-16); BLOOD UREA NITROGEN 4 mg/dl (7-20); CARBON DIOXIDE 27 mmol/L (21-31); CHLORIDE 111 mmol/L (97-110); CREATININE 1.29 mg/dl (0.44-1.00); GLUCOSE 126 mg/dl (70-220); PHOSPHORUS 2.9 mg/dl (2.5-4.9); POTASSIUM 3.7 mmol/L (3.5-5.1); SODIUM 141 mmol/L (135-144)
[2018-03-14] MEDS: CEFAZOLIN 1 GM/50 ML (PMX) 50 ML IVPB (08:56)
[2018-03-14] MEDS: HEPARIN 5,000 UNIT/0.5 ML VIAL SC ×2 (09:00→21:58)
[2018-03-14] MEDS: BALSAM PERU/CASTOR OIL 60 GM TUBE TOP ×2 (09:00→21:54)
[2018-03-14] MEDS: METOPROLOL 25 MG TAB PO ×2 (09:01→21:53)
[2018-03-14] MEDS: MUPIROCIN 2% 22 GM OINT TOP ×2 (09:01→21:54)
[2018-03-14] MEDS: ASPIRIN 300 MG SUPP PR (10:45)
[2018-03-14] MEDS: INSULIN GLARGINE [LANTus] (100 UNITS/ML) SYG SC (21:57)
[2018-03-15] MEDS: INSULIN ASPART [NOVOLOG] 3 ML PEN SC ×5 (01:00→17:30)
[2018-03-15] MEDS: DEXTROSE 5%-0.45% NACL 1,000 ML IV ×2 (03:21→04:30)
[2018-03-15] MEDS: PANTOPRAZOLE 40 MG INJ IV (05:53)
[2018-03-15] MEDS: BALSAM PERU/CASTOR OIL 60 GM TUBE TOP (08:49)
[2018-03-15] MEDS: MUPIROCIN 2% 22 GM OINT TOP (08:49)
[2018-03-15] MEDS: ASPIRIN 300 MG SUPP PR (08:50)
[2018-03-15] MEDS: METOPROLOL 25 MG TAB PO (08:50)
[2018-03-15] MEDS: HEPARIN 5,000 UNIT/0.5 ML VIAL SC (08:54)
[2018-03-16] MEDS ORDERED: ASPIRIN 81 MG TAB PEG (09:00)
== END 2018-03-15 19:35 | DRG 871 ==
LOC: E/R 02:36 → 2NE 03-06 13:20 → ICU 06:15
PROVIDERS: Internal Medicine
PROC: 0DH63UZ Insertion of Feeding Device into Stomach, Percutaneous Approach (ICD-10-PCS; principal; 2018-03-12 14:30)
PROC: 3E0G76Z Introduction of Nutritional Substance into Upper GI, Via Natural or Artificial Opening (ICD-10-PCS; 2018-03-12 14:30)
PROC: 02HV33Z Insertion of Infusion Device into Superior Vena Cava, Percutaneous Approach (ICD-10-PCS; 2018-03-12 14:30)
PROC: B54MZZA Ultrasonography of Right Upper Extremity Veins, Guidance (ICD-10-PCS; 2018-03-12 14:30)
PROC: 4A033R1 Measurement of Arterial Saturation, Peripheral, Percutaneous Approach (ICD-10-PCS; 2018-03-12 14:30)
DX: A41.9 Sepsis, unspecified organism (principal); N17.0 Acute kidney failure with tubular necrosis; E11.10 Type 2 diabetes mellitus with ketoacidosis without coma; E87.0 Hyperosmolality and hypernatremia; E44.0 Moderate protein-calorie malnutrition; Z68.1 Body mass index [BMI] 19.9 or less, adult; G93.49 Other encephalopathy; R64 Cachexia; R65.20 Severe sepsis without septic shock; L89.152 Pressure ulcer of sacral region, stage 2; F03.90 Unspecified dementia, unspecified severity, without behavioral disturbance, psychotic disturbance, mood disturbance, and anxiety; I10 Essential (primary) hypertension; E78.5 Hyperlipidemia, unspecified; R74.8 Abnormal levels of other serum enzymes; R47.02 Dysphasia; R62.7 Adult failure to thrive; L89.621 Pressure ulcer of left heel, stage 1; L89.611 Pressure ulcer of right heel, stage 1; R26.89 Other abnormalities of gait and mobility; R13.10 Dysphagia, unspecified; E86.0 Dehydration; E87.6 Hypokalemia; E83.42 Hypomagnesemia; E05.90 Thyrotoxicosis, unspecified without thyrotoxic crisis or storm; E88.81 Metabolic syndrome and other insulin resistance; N30.90 Cystitis, unspecified without hematuria
CPT/HCPCS: 36415; 36569; 36600; 71045; 76775; 76937; 80048; 80053; 80061; 80076; 81001; 81003; 82550; 82553; 82570; 82803; 82962; 83605; 83735; 83970; 84100; 84134; 84145; 84155; 84300; 84439; 84443; 84478; 84484; 85025; 85610; 85730; 87040; 87081; 87086; 92526; 92610; 93005; 93306; 96365; 96375; 97110; 97161; 97530; 99291-25

== ENCOUNTER 2018-08-11 08:43 | Inpatient (IN) | payer OTHER ==
[2018-08-11] MEDS: SOD CHLORIDE 0.9% 1,000 ML IV ×2 (09:36→12:47)
[2018-08-11 10:16] LABS: RED CELL DISTRIBUTION WIDTH 14.6 % (11.5-14.5)
[2018-08-11 10:18] LABS: WHITE BLOOD COUNT 4.1 10^3/ul (4.8-10.8)
[2018-08-11 10:18] LABS: ABNORMAL IP MESSAGE 1; HEMATOCRIT 18.4 % (37.0-47.0); MEAN CORPUSCULAR HEMOGLOBIN 30.6 pg (29.0-33.0); MEAN CORPUSCULAR HGB CONC 28.3 g/dl (32.0-37.0); MEAN CORPUSCULAR VOLUME 108.2 fl (82.0-101.0); PLATELET COUNT 95 10^3/UL (140-415)
[2018-08-11 10:20] LABS: POSITIVE DIFF @See below
[2018-08-11 10:22] LABS: ADD MAN DIFF? YES; HEMOGLOBIN 5.3 g/dl (12.0-16.0)
[2018-08-11 10:38] LABS: ALANINE AMINOTRANSFERASE 34 IU/L (13-69); ALBUMIN 3.9 g/dl (3.3-4.9); ALKALINE PHOSPHATASE 113 IU/L (42-121); ANION GAP 7 (5-13); ASPARTATE AMINO TRANSFERASE 42 IU/L (15-46); BILIRUBIN,INDIRECT 0.5 mg/dl (0-1.1); BILIRUBIN,TOTAL 0.5 mg/dl (0.2-1.3); BLOOD UREA NITROGEN 98 mg/dl (7-20); CALCIUM 10.2 mg/dl (8.4-10.2); CARBON DIOXIDE 31 mmol/L (21-31); CHLORIDE 123 mmol/L (97-110); CREATINE KINASE 85 IU/L (23-200); Estimated GFR 42 mL/min (>60); POTASSIUM 4.6 mmol/L (3.5-5.1); TOTAL PROTEIN 8.2 g/dl (6.1-8.1)
[2018-08-11 10:40] LABS: AMMONIA < 9 umol/l (9-30)
[2018-08-11 10:41] LABS: ACETAMINOPHEN < 10.0 ug/ml (10.0-30.0); ETHANOL < 10.0 mg/dl (0-0); GLUCOSE 418 mg/dl (70-220); SALICYLATE < 1.0 mg/dl (5.0-30.0)
[2018-08-11 10:43] LABS: SODIUM 161 mmol/L (135-144)
[2018-08-11 10:49] LABS: CK-MB 0.89 ng/ml (0.0-2.4); TROPONIN-I 0.044 ng/ml (0.000-0.120)
[2018-08-11 11:06] LABS: ANISOCYTOSIS 1+ (0-0); BAND NEUTROPHILS % (M) 1 % (0-4); BASOPHILS % (M) 2 % (0-2); BURR CELLS 3+ (0-0); GIANT THROMBO% (M) 3 % (0-0); LYMPHOCYTES #M 0.1 10^3/ul (0.8-2.9); LYMPHOCYTES % (M) 4 % (15-51); MONOCYTE #M 0.1 10^3/ul (0.3-0.9); MONOCYTES % (M) 3 % (0-11); PLATELET ESTIMATE DECREASED; POIKILOCYTOSIS 3+ (0-0); SEG NEUT #M 3.7 10^3/ul (1.6-7.5); SEGMENTED NEUTROPHILS (M) % 90 % (39-77); SMUDGE%M 7 % (0-0)
[2018-08-11 11:25] LABS: AMPHETAMINE/METHAMPHETAMINE Negative (NEGATIVE); BARBITURATES Negative (NEGATIVE); BENZODIAZEPINES Negative (NEGATIVE); CANNABINOIDS Negative (NEGATIVE); COCAINE Negative (NEGATIVE); OPIATES Negative (NEGATIVE)
[2018-08-11 11:47] LABS: ADD UMIC YES; UR ASCORBIC ACID 40 mg/dL (NEGATIVE); UR BILIRUBIN (Dip) NEGATIVE (NEGATIVE); UR BLOOD (Dip) NEGATIVE (NEGATIVE); UR CLARITY CLOUDY (CLEAR); UR COLOR YELLOW (YELLOW); UR GLUCOSE (Dip) 3+ mg/dL (NEGATIVE); UR KETONES (Dip) NEGATIVE (NEGATIVE); UR LEUKOCYTE ESTERASE (Dip) 3+ Leu/ul (NEGATIVE); UR NITRITE (Dip) NEGATIVE (NEGATIVE); UR TOTAL PROTEIN (Dip) 1+ mg/dl (NEGATIVE); UR UROBILINOGEN (Dip) NEGATIVE (NEGATIVE)
[2018-08-11 11:49] LABS: UR BACTERIA FEW /HPF (NONE SEEN); UR BUDDING YEAST FEW /HPF (NONE SEEN); UR MUCUS FEW /HPF (NONE SEEN); UR RBC 4 /HPF (0-5); UR WBC > 182 /HPF (0-5)
[2018-08-11 12:24] LABS: ADD MAN DIFF? NO
[2018-08-11 12:30] LABS: BASOPHIL # 0.1 10^3/ul (0.0-0.1); BASOPHILS % 0.4 % (0.0-2.0); EOSINOPHILS % 0.1 % (0.0-7.0); HEMATOCRIT 55.9 % (37.0-47.0); HEMOGLOBIN 17.5 g/dl (12.0-16.0); LYMPHOCYTES # 1.7 10^3/ul (0.8-2.9); LYMPHOCYTES % 12.5 % (15.0-51.0); MEAN CORPUSCULAR HEMOGLOBIN 30.2 pg (29.0-33.0); MEAN CORPUSCULAR HGB CONC 31.3 g/dl (32.0-37.0); MEAN CORPUSCULAR VOLUME 96.5 fl (82.0-101.0); MEAN PLATELET VOLUME 12.4 fl (7.4-10.4); MONOCYTE # 0.9 10^3/ul (0.3-0.9); MONOCYTES % 6.6 % (0.0-11.0); NEUTROPHIL # 10.7 10^3/ul (1.6-7.5); NEUTROPHILS % 79.9 % (39.0-77.0); PLATELET COUNT 359 10^3/UL (140-415); RED BLOOD COUNT 5.79 10^6/ul (4.20-5.40); RED CELL DISTRIBUTION WIDTH 14.3 % (11.5-14.5)
[2018-08-11 12:30] LABS: WHITE BLOOD COUNT 13.4 10^3/ul (4.8-10.8)
[2018-08-11] MEDS ORDERED: ONDANSETRON 4 MG INJ IV ×2 (12:30→17:00)
[2018-08-11] MEDS ORDERED: ACETAMINOPHEN 325 MG TAB PO ×2 (12:30→17:00)
[2018-08-11] MEDS: CEFTRIAXONE 1 GM/50 ML (PMX) 50 ML IVPB (12:47)
[2018-08-11 12:57] LABS: ALANINE AMINOTRANSFERASE 42 IU/L (13-69); ALBUMIN 4.1 g/dl (3.3-4.9); ALBUMIN/GLOBULIN RATIO 0.97; ALKALINE PHOSPHATASE 110 IU/L (42-121); ANION GAP 6 (5-13); ASPARTATE AMINO TRANSFERASE 46 IU/L (15-46); BILIRUBIN,INDIRECT 0.6 mg/dl (0-1.1); BILIRUBIN,TOTAL 0.6 mg/dl (0.2-1.3); BLOOD UREA NITROGEN 100 mg/dl (7-20); CALCIUM 10.3 mg/dl (8.4-10.2); CARBON DIOXIDE 36 mmol/L (21-31); CHLORIDE 120 mmol/L (97-110); CREATININE 1.53 mg/dl (0.44-1.00); Estimated GFR 41 mL/min (>60); POTASSIUM 4.4 mmol/L (3.5-5.1); TOTAL PROTEIN 8.3 g/dl (6.1-8.1)
[2018-08-11 12:58] LABS: GLUCOSE 409 mg/dl (70-220)
[2018-08-11] MEDS: INSULIN LISPRO 100 UNIT/ML VIAL SC (12:58)
[2018-08-11 13:01] LABS: SODIUM 162 mmol/L (135-144)
[2018-08-11 13:07] LABS: LACTIC ACID 3.1 mmol/L (0.5-2.0)
[2018-08-11 13:23] LABS: PARTIAL THROMBOPLASTIN TIME 27.5 Sec (23.0-35.0); PROTIME 13.3 Sec (11.9-14.9)
[2018-08-11] MEDS ORDERED: BISACODYL (EC) 5 MG TAB PO (17:00)
[2018-08-11] MEDS ORDERED: ACETAMINOPHEN 500 MG TAB PO (17:00)
[2018-08-11] MEDS ORDERED: ACETAMINOPHEN 650 MG SUPP PR (17:00)
[2018-08-11] MEDS ORDERED: DOCUSATE SODIUM 100 MG CAP PO (17:00)
[2018-08-11] MEDS ORDERED: ONDANSETRON 4 MG TAB GTB (17:00)
[2018-08-11] MEDS ORDERED: NACL 0.9% 3 ML SYG IV (17:00)
[2018-08-11] MEDS ORDERED: MAGNESIUM HYDROXIDE 30ML CUP PO (17:00)
[2018-08-11] MEDS ORDERED: NA PHOSPHATE/BIPHOS 133 ML ENEMA PR (17:00)
[2018-08-11] MEDS ORDERED: INSULIN ASPART [NOVOLOG] 3 ML PEN SC (17:55)
[2018-08-11] MEDS: SOD CHLORIDE 0.45% 1,000 ML IV (18:40)
[2018-08-11] MEDS ORDERED: GLUCOSE GEL 15 GRAM TUBE PO ×2 (19:30)
[2018-08-11] MEDS ORDERED: GLUCOSE GEL 15 GRAM TUBE BUCCAL (19:30)
[2018-08-11] MEDS ORDERED: GLUCAGON 1 MG INJ IM (19:30)
[2018-08-11] MEDS: METOPROLOL 25 MG TAB GTB (21:41)
[2018-08-11] MEDS: INSULIN GLARGINE [LANTus] (100 UNITS/ML) SYG SC ×2 (22:19→23:48)
[2018-08-11] MEDS: INSULIN ASPART [NOVOLOG] 3 ML PEN SC (22:19)
[2018-08-12] MEDS: INSULIN ASPART [NOVOLOG] 3 ML PEN SC ×8 (01:00→21:58)
[2018-08-12] MEDS: ACCU-CHEK XX (02:00)
[2018-08-12] MEDS: SOD CHLORIDE 0.45% 1,000 ML IV ×2 (05:59→18:40)
[2018-08-12] MEDS: DONEPEZIL 5 MG TAB GTB (08:42)
[2018-08-12] MEDS: ASPIRIN 81 MG TAB GTB (08:42)
[2018-08-12] MEDS: METOPROLOL 25 MG TAB GTB ×2 (08:43→21:52)
[2018-08-12] MEDS: LANSOPRAZOLE 30 MG CAP GTB (09:00)
[2018-08-12] MEDS ORDERED: DOCUSATE SODIUM 10 MG/ML (10ML CUP) GTB (09:30)
[2018-08-12] MEDS: DOCUSATE SODIUM 10 MG/ML (10ML CUP) GTB (09:45)
[2018-08-12] MEDS: CEFTRIAXONE 1 GM/50 ML (PMX) 50 ML IVPB (09:45)
[2018-08-12] MEDS: INSULIN DETEMIR [LEVEMIR] (100 UNITS/ML) SYG SC ×2 (09:48→21:54)
[2018-08-12 12:30] LABS: ADD MAN DIFF? NO
[2018-08-12 12:31] LABS: WHITE BLOOD COUNT 12.6 10^3/ul (4.8-10.8)
[2018-08-12 12:31] LABS: BASOPHILS % 0.3 % (0.0-2.0); EOSINOPHILS # 0.2 10^3/ul (0.0-0.5); EOSINOPHILS % 1.6 % (0.0-7.0); HEMATOCRIT 48.3 % (37.0-47.0); HEMOGLOBIN 14.7 g/dl (12.0-16.0); LYMPHOCYTES # 2.2 10^3/ul (0.8-2.9); LYMPHOCYTES % 17.1 % (15.0-51.0); MEAN CORPUSCULAR HEMOGLOBIN 30.2 pg (29.0-33.0); MEAN CORPUSCULAR HGB CONC 30.4 g/dl (32.0-37.0); MEAN CORPUSCULAR VOLUME 99.4 fl (82.0-101.0); MEAN PLATELET VOLUME 12.5 fl (7.4-10.4); MONOCYTE # 0.6 10^3/ul (0.3-0.9); MONOCYTES % 4.5 % (0.0-11.0); NEUTROPHIL # 9.6 10^3/ul (1.6-7.5); NEUTROPHILS % 76.3 % (39.0-77.0); PLATELET COUNT 281 10^3/UL (140-415); RED BLOOD COUNT 4.86 10^6/ul (4.20-5.40); RED CELL DISTRIBUTION WIDTH 14.6 % (11.5-14.5)
[2018-08-12 12:41] LABS: HEMOGLOBIN A1C 10.8 % (0-5.9)
[2018-08-12 12:55] LABS: ALANINE AMINOTRANSFERASE 39 IU/L (13-69); ALBUMIN 3.1 g/dl (3.3-4.9); ALBUMIN/GLOBULIN RATIO 0.83; ALKALINE PHOSPHATASE 88 IU/L (42-121); ANION GAP 7 (5-13); ASPARTATE AMINO TRANSFERASE 41 IU/L (15-46); BILIRUBIN,INDIRECT 0.3 mg/dl (0-1.1); BILIRUBIN,TOTAL 0.3 mg/dl (0.2-1.3); BLOOD UREA NITROGEN 69 mg/dl (7-20); CALCIUM 8.7 mg/dl (8.4-10.2); CARBON DIOXIDE 31 mmol/L (21-31); CHLORIDE 119 mmol/L (97-110); CREATININE 1.27 mg/dl (0.44-1.00); Estimated GFR 50 mL/min (>60); GLUCOSE 286 mg/dl (70-220); POTASSIUM 3.6 mmol/L (3.5-5.1); SODIUM 157 mmol/L (135-144); TOTAL PROTEIN 6.8 g/dl (6.1-8.1)
[2018-08-12] MEDS: DOCUSATE SODIUM 100 MG CAP PO (14:02)
[2018-08-12] MEDS: FOSFOMYCIN 3 GM PACKET GTB (16:11)
[2018-08-13] MEDS: INSULIN ASPART [NOVOLOG] 3 ML PEN SC ×11 (01:00→21:00)
[2018-08-13] MEDS: ACCU-CHEK XX (01:19)
[2018-08-13] MEDS ORDERED: ACCU-CHEK XX (02:00)
[2018-08-13] MEDS: SOD CHLORIDE 0.45% 1,000 ML IV ×2 (06:04→17:28)
[2018-08-13 07:02] LABS: ADD MAN DIFF? NO
[2018-08-13 07:09] LABS: WHITE BLOOD COUNT 9.2 10^3/ul (4.8-10.8)
[2018-08-13 07:09] LABS: BASOPHILS % 0.2 % (0.0-2.0); EOSINOPHILS # 0.3 10^3/ul (0.0-0.5); EOSINOPHILS % 3.6 % (0.0-7.0); HEMATOCRIT 42.1 % (37.0-47.0); HEMOGLOBIN 13.1 g/dl (12.0-16.0); LYMPHOCYTES # 2.4 10^3/ul (0.8-2.9); LYMPHOCYTES % 25.8 % (15.0-51.0); MEAN CORPUSCULAR HEMOGLOBIN 30.1 pg (29.0-33.0); MEAN CORPUSCULAR HGB CONC 31.1 g/dl (32.0-37.0); MEAN CORPUSCULAR VOLUME 96.8 fl (82.0-101.0); MEAN PLATELET VOLUME 12.4 fl (7.4-10.4); MONOCYTE # 0.3 10^3/ul (0.3-0.9); MONOCYTES % 3.5 % (0.0-11.0); NEUTROPHIL # 6.1 10^3/ul (1.6-7.5); NEUTROPHILS % 66.5 % (39.0-77.0); PLATELET COUNT 203 10^3/UL (140-415); RED BLOOD COUNT 4.35 10^6/ul (4.20-5.40); RED CELL DISTRIBUTION WIDTH 13.9 % (11.5-14.5)
[2018-08-13 07:27] LABS: PHOSPHORUS 2.6 mg/dl (2.5-4.9)
[2018-08-13 07:27] LABS: ANION GAP 3 (5-13); BLOOD UREA NITROGEN 48 mg/dl (7-20); CALCIUM 7.9 mg/dl (8.4-10.2); CARBON DIOXIDE 29 mmol/L (21-31); CHLORIDE 116 mmol/L (97-110); CREATININE 0.91 mg/dl (0.44-1.00); Estimated GFR > 60 mL/min (>60); GLUCOSE 94 mg/dl (70-220); MAGNESIUM 2.6 mg/dl (1.7-2.5); POTASSIUM 3.9 mmol/L (3.5-5.1); SODIUM 148 mmol/L (135-144)
[2018-08-13] MEDS: INSULIN DETEMIR [LEVEMIR] (100 UNITS/ML) SYG SC ×2 (08:00→21:16)
[2018-08-13] MEDS: LANSOPRAZOLE 30 MG CAP GTB (09:00)
[2018-08-13] MEDS: DOCUSATE SODIUM 10 MG/ML (10ML CUP) GTB (09:00)
[2018-08-13] MEDS: ASPIRIN 81 MG TAB GTB (09:00)
[2018-08-13] MEDS: METOPROLOL 25 MG TAB GTB (09:00)
[2018-08-13] MEDS: DONEPEZIL 5 MG TAB GTB (09:00)
[2018-08-13] MEDS: CEFTRIAXONE 1 GM/50 ML (PMX) 50 ML IVPB (09:42)
[2018-08-13] MEDS: SOD CHLORIDE 0.9% 500 ML IV (12:15)
[2018-08-13] MEDS: DEXTROSE 50% 50 ML SYRINGE IV (12:34)
[2018-08-14] MEDS: SOD CHLORIDE 0.45% 1,000 ML IV ×3 (00:22→17:58)
[2018-08-14] MEDS: INSULIN ASPART [NOVOLOG] 3 ML PEN SC ×9 (00:23→20:19)
[2018-08-14] MEDS: ACCU-CHEK XX (01:30)
[2018-08-14 07:30] LABS: ANION GAP 2 (5-13); BLOOD UREA NITROGEN 30 mg/dl (7-20); CALCIUM 7.9 mg/dl (8.4-10.2); CARBON DIOXIDE 28 mmol/L (21-31); CHLORIDE 114 mmol/L (97-110); CREATININE 0.88 mg/dl (0.44-1.00); Estimated GFR > 60 mL/min (>60); GLUCOSE 112 mg/dl (70-220); POTASSIUM 3.8 mmol/L (3.5-5.1); SODIUM 144 mmol/L (135-144)
[2018-08-14 07:35] LABS: MAGNESIUM 2.3 mg/dl (1.7-2.5)
[2018-08-14 07:35] LABS: PHOSPHORUS 2.6 mg/dl (2.5-4.9)
[2018-08-14] MEDS: ASPIRIN 81 MG TAB GTB (09:02)
[2018-08-14] MEDS: LANSOPRAZOLE 30 MG CAP GTB (09:02)
[2018-08-14] MEDS: DOCUSATE SODIUM 10 MG/ML (10ML CUP) GTB (09:02)
[2018-08-14] MEDS: DONEPEZIL 5 MG TAB GTB (09:02)
[2018-08-14] MEDS: INSULIN DETEMIR [LEVEMIR] (100 UNITS/ML) SYG SC ×2 (09:46→20:23)
[2018-08-14] MEDS: CEFTRIAXONE 1 GM/50 ML (PMX) 50 ML IVPB (11:47)
[2018-08-14] MEDS: FLUCONAZOLE 200 MG TAB NGT (12:59)
[2018-08-14] MEDS: MUPIROCIN 2% 22 GM OINT TOP ×2 (12:59→20:19)
[2018-08-15] MEDS: INSULIN ASPART [NOVOLOG] 3 ML PEN SC ×6 (00:27→12:49)
[2018-08-15] MEDS: DEXTROSE 50% 50 ML SYRINGE IV (00:32)
[2018-08-15] MEDS: ACCU-CHEK XX (01:27)
[2018-08-15] MEDS: INSULIN DETEMIR [LEVEMIR] (100 UNITS/ML) SYG SC (08:00)
[2018-08-15] MEDS: DOCUSATE SODIUM 10 MG/ML (10ML CUP) GTB (08:58)
[2018-08-15] MEDS: ASPIRIN 81 MG TAB GTB (08:58)
[2018-08-15] MEDS: FLUCONAZOLE 200 MG TAB NGT (08:58)
[2018-08-15] MEDS: SOD CHLORIDE 0.45% 1,000 ML IV (08:58)
[2018-08-15] MEDS: DONEPEZIL 5 MG TAB GTB (08:58)
[2018-08-15] MEDS: LANSOPRAZOLE 30 MG CAP GTB (08:58)
[2018-08-15] MEDS: MUPIROCIN 2% 22 GM OINT TOP (09:05)
[2018-08-15] MEDS: CEFTRIAXONE 1 GM/50 ML (PMX) 50 ML IVPB (09:05)
[2018-08-15] MEDS ORDERED: INSULIN DETEMIR [LEVEMIR] (100 UNITS/ML) SYG SC (20:00)
== END 2018-08-15 16:52 | DRG 872 ==
LOC: E/R 08:43 → TEL 12:29
DX: A41.9 Sepsis, unspecified organism (principal); N39.0 Urinary tract infection, site not specified; N17.9 Acute kidney failure, unspecified; E87.0 Hyperosmolality and hypernatremia; E87.2 Acidosis; L89.152 Pressure ulcer of sacral region, stage 2; E11.65 Type 2 diabetes mellitus with hyperglycemia; R13.12 Dysphagia, oropharyngeal phase; F03.90 Unspecified dementia, unspecified severity, without behavioral disturbance, psychotic disturbance, mood disturbance, and anxiety; E86.0 Dehydration; Z93.1 Gastrostomy status; F31.9 Bipolar disorder, unspecified; Z79.4 Long term (current) use of insulin; Z79.82 Long term (current) use of aspirin; Z86.73 Personal history of transient ischemic attack (TIA), and cerebral infarction without residual deficits; Z74.01 Bed confinement status
CPT/HCPCS: 36415; 70450; 71045; 80048; 80053; 80307; 81001; 82140; 82550; 82553; 82962; 83036; 83605; 83735; 84100; 84484; 85025; 85610; 85730; 86850; 86900; 86901; 86920; 87040; 87081; 87086; 93005; 99291-25